=== PATIENT | male | born 1945 | race Caucasian/White ===

== ENCOUNTER 2016-12-18 18:51 | Emergency (ER) | payer MEDICARE, BC ==
[~2016-12-18] VITALS: Ht 177.8 cm; Wt 72.0 kg
--- NOTE | ~2016-12-18 | CT71 ---
[facility] A Service of [facility] RADIOLOGY TEXT RESULTS PATIENT: JANELLE ZAMORANO LOCATION: SED : 47 UNIT #: [id number] AGE: [address]: MAURO RAHMAN SEX: M ORDER DR: [id number] [place] [id number] E MR#: [id number] Acc #: [id number] NAME: JANELLE ZAMORANO : 1945 SEX: M STUDY DATE/TIME: 12/18/2016 20:11 UNIT: SED ROOM: STUDY DESCRIPTION: CT Head Wo Contrast Attending Physician: Mauro Rahman Ordering Physician: Mauro Rahman Primary Care Physician: Lorraine Elliott A.P.R.N. MEDICAL IMAGING REPORT This report is preliminary unless electronic signature is present. EXAM CT head without contrast, 12/18/2016. HISTORY 71-year-old male with head pain after hitting head on cabinet today. COMPARISON CT head, 06/22/2016. TECHNIQUE Routine unenhanced axial images performed through the brain. This CT exam was performed with one or more of the following radiation dose reduction techniques: automatic exposure control, adjustment of mA and/or kV according to patient size, and iterative reconstruction. FINDINGS No hemorrhage, acute infarction, mass lesion, or abnormal extraaxial fluid collection. No midline shift or focal mass effect. Ventricular system normal in size and configuration. Stable right temporal encephalomalacia. No acute bony abnormality. Postsurgical changes of the right globe are again noted. Visualized paranasal sinuses and mastoid air cells are clear. IMPRESSION No acute intracranial abnormality. Dictated by... Lazaro Mcghee M.D. THIS IS AN ELECTRONICALLY VERIFIED REPORT Lazaro Mcghee M.D. at 12/19/2016 3:59 PM ULI/trevor [facility] A Service of [facility] RADIOLOGY TEXT RESULTS PATIENT: JANELLE ZAMORANO LOCATION: SED : 47 UNIT #: [id number] AGE: [address]: MAURO RAHMAN SEX: M ORDER DR: TD: 12/19/2016 06:02 JOB #: [id number] MEDICAL IMAGING REPORT Page 1 of 1
--- NOTE | ~2016-12-18 | CT52 ---
[facility] A Service of [facility] RADIOLOGY TEXT RESULTS PATIENT: JANELLE ZAMORANO LOCATION: SED : 47 UNIT #: [id number] AGE: [address]: MAURO RAHMAN SEX: M ORDER DR: [id number] [place] [address] [id number] E MR#: [id number] Acc #: [id number] NAME: JANELLE ZAMORANO : 1945 SEX: M STUDY DATE/TIME: 12/18/2016 20:16 UNIT: SED ROOM: STUDY DESCRIPTION: CT Cervical Spine Wo Cont Attending Physician: Mauro Rahman Ordering Physician: Mauro Rahman Primary Care Physician: Lorraine Elliott A.P.R.N. MEDICAL IMAGING REPORT This report is preliminary unless electronic signature is present. EXAM CT cervical spine without contrast HISTORY Neck pain today. Hit head today. FINDINGS This CT examination was performed with one or more of the following radiation dose reduction techniques: automatic exposure control, adjustment of mA and/or kV according to patient size, and iterative reconstruction. CT cervical spine without contrast demonstrates no fracture. Partial bony intervertebral fusion C2-3 with 3 mm anterior subluxation of C2 on C3. Moderate degenerative disc space narrowing at C5-6. Small posterior marginal osteophytes at C3-4 and C5-6. [id number] multilevel degenerative facet arthropathy, greater at C3-4 on the left, contributing to moderate left bony outlet foraminal narrowing at this level. No fracture. IMPRESSION 1. No acute findings. 2. No fracture. 3. Multilevel degenerative changes. 4. Moderate left bony outlet foraminal narrowing at C3-4 predominantly secondary to facet hypertrophy. Dictated by... Cb Jasso M.D. THIS IS AN ELECTRONICALLY VERIFIED REPORT [facility] A Service [facility] RADIOLOGY TEXT RESULTS PATIENT: JANELLE ZAMORANO LOCATION: SED : 47 UNIT #: [id number] AGE: [address]: MAURO RAHMAN SEX: M ORDER DR: Cb Jasso M.D. at 12/19/2016 11:04 PM SUSANNE/nabeel TD: 12/19/2016 06:17 JOB #: [id number] MEDICAL IMAGING REPORT Page 1 of 1
[~2016-12-18 18:51] MED LIST: ADVAIR INH; ALLEGRA PO; ALLERGY MED; ASPIRIN PO; ASPIRIN81 M2 PO; CARAFATE1 G PO; CIPRO PO; COUMADIN PO; LOVENOX SUBQ; MUCINEX DM1 TAB.SR . PO; NASONEX17 GM NS; NO MEDICATIONS; NORCO 5/325 TAB1 TAB PO; PRILOSEC PO; PROSCAR5 MG PO; SINGULAIR PO; TYLENOL #3 PO; VOLTAREN75 MG PO; XYZAL PO; ZITHROMAX PO; ZOFRAN ODT4 MG PO; ZYRTEC PO; ZYRTEC10 M2 PO
== END 2016-12-18 22:27 | disposition home or self-care (01) ==
LOC: SED 18:51
DX: S09.90XA Unspecified injury of head, initial encounter (principal); S16.1XXA Strain of muscle, fascia and tendon at neck level, initial encounter; Z88.0 Allergy status to penicillin; Z79.82 Long term (current) use of aspirin; Z88.8 Allergy status to other drugs, medicaments and biological substances; W22.8XXA Striking against or struck by other objects, initial encounter; Y93.39 Activity, other involving climbing, rappelling and jumping off; Y92.009 Unspecified place in unspecified non-institutional (private) residence as the place of occurrence of the external cause
CPT/HCPCS: 70450; 72125; 96372; 99283; J2360